=== PATIENT | male | born 1975 ===

== ENCOUNTER → 2019-03-28 12:30 | Outpatient (REF) | payer SELFPAY ==
[2019-04-09 22:32] LABS: API SURVEY SYPHILIS SEROL. NONREACTIVE (NONREACTIVE)
[2019-04-10 03:52] LABS: API SURVEY SYPHILIS SEROL. NONREACTIVE (NONREACTIVE)
[2019-04-10 07:32] LABS: API SURVEY SYPHILIS SEROL. REACTIVE (NONREACTIVE)
[2019-04-10 07:33] LABS: API SURVEY SYPHILIS SEROL. REACTIVE (NONREACTIVE)
== END ==
LOC: LABSURVEY 12:30
PROVIDERS: Visit Provider Pathology Anatomic Pathology & Clinical Pathology
DX: Z00.00 Encounter for general adult medical examination without abnormal findings (principal)